=== PATIENT | male | born 1965 | race African-American/Black ===

== ENCOUNTER 2016-06-30 08:21 | Emergency (ER) | payer OTHER ==
[~2016-06-30] VITALS: Ht 170.2 cm; Wt 81.6 kg
[2016-06-30 08:30] VITALS: BP 201/108
[2016-06-30] MEDS ORDERED: PRED20TA PO (09:07)
[2016-06-30] MEDS ORDERED: COLC0.6T34 PO (09:07)
--- NOTE | 2016-06-30 09:08 | PHYS DOC ---
Past Medical History Past Medical History: Hypertension, Other Additional Past Medical Histor: gout Past Surgical History: No Surgical History Alcohol Use: Heavy Drug Use: None Adult General Chief Complaint Chief Complaint: FOOT INJURY PAIN HPI HPI Patient is a 50 year old male who presents with left foot pain for one week. He denies any injury to the foot. The pain is primarily around the MTP joint of the great toe. There is redness and warmth in the area as well. He denies any fevers. He has a history of gout and states that this pain is similar to his previous gout attacks. He has tried Epsom salt soaks, [place], and naproxen at home without relief. His PCP is Dr. Stephany Shin. Review of Systems Review of Systems Constitutional: Denies fever or chills. [] Musculoskeletal: Denies back pain. Reports left foot pain. Integument: Denies rash or skin lesions. Reports left foot redness and warmth. Neurologic: Denies focal weakness or sensory changes. [] Allergies Allergies Allergies Coded Allergies Type Severity Reaction Last Updated Verified tramadol Allergy Unknown 06/30/16 Yes Physical Exam Physical Exam Constitutional: Well developed, well nourished, no acute distress, non-toxic appearance. [] HENT: Normocephalic, atraumatic, oropharynx moist. [] Eyes: PERRLA, EOMI, conjunctiva normal, no discharge. [] Skin: Warm, dry, no rash. There is erythema and warmth over the left first MTP joint without edema. Extremities: Left first MTP joint tenderness, ROM intact, no edema. 2+ pedal pulses. Less than 2 second capillary refill in the toes. Light touch sensation intact in the toes. There is no pedal edema. Neurologic: Alert and oriented X 3, normal motor function, normal sensory function, no focal deficits noted. [] Psychologic: Affect normal, judgement normal, mood normal. [] Current Patient Data Vital Signs Vital Signs Date Time Temp Pulse Resp B/P Pulse Ox O2 Delivery O2 Flow Rate FiO2 06/30/16 08:30 98.3 110 16 99 Room Air 98.3 EKG EKG [] Radiology/Procedures Radiology/Procedures [] Course & Med Decision Making Course & Med Decision Making Pertinent Labs and Imaging studies reviewed. (See chart for details) [] Dragon Disclaimer Dragon Disclaimer This electronic medical record was generated, in whole or in part, using a voice recognition dictation system. Departure Departure Impression: Primary Impression: Gout Disposition: HOME, SELF-CARE Condition: STABLE Referrals: UNKNOWN PCP NAME (PCP) Patient Instructions: Gout, [id number] Additional Instructions: Please take the prescribed medications as directed. Please follow up with your doctor within the next week. Return to the emergency department if you have fever, increased redness or swelling, or other new or concerning symptoms. Scripts Colchicine (Colcrys)0.6 Mg Tablet0.6 Mg PO 1X #1 Take 1 hour after dose given in the emergency department. Prov:NIKHIL DELGADO 06/30/16 Prednisone 20 Mg [id number] Mg PO DAILY 5 Days Prov:NIKHIL DELGADO 06/30/16 Problem Qualifiers Primary Impression: Gout Gout site: foot Gout etiology: unspecified cause Laterality: left Chronicity: acute Qualified Code: M10.9 - Gout, unspecified NIKHIL DELGADO Jun 30, 2016 09:08
[2016-06-30] MEDS ORDERED: COLCHICINE 0.6 MG TABLET PO ONE (09:15)
== END 2016-06-30 09:19 | disposition home or self-care (01) ==
LOC: ER 08:21
DX: M10.9 Gout, unspecified (principal); I10 Essential (primary) hypertension; F10.10 Alcohol abuse, uncomplicated; Z88.6 Allergy status to analgesic agent
CPT/HCPCS: 99283

== ENCOUNTER 2017-11-15 00:51 | Emergency (ER) | payer OTHER | END 2017-11-15 01:48 | disposition left against medical advice (07) | LOC: ER 01:48 | DX: M25.422 Effusion, left elbow (principal) ==